=== PATIENT | female | born 1990 | race Caucasian/White ===

== ENCOUNTER 2016-07-24 10:19 | Emergency (ER) | payer OTHER ==
[~2016-07-24 10:19] MED LIST: IBUPROFEN600 MG PO
[2016-07-24 11:16] LABS: HEMOGLOBIN 14.5 gm/dl (12.3-15.3); RED BLOOD COUNT 4.81 M/UL (4.00-5.10); WHITE BLOOD COUNT 8.4 K/UL (4.5-11.0)
[2016-07-24 11:39] LABS: BUN/CREATININE RATIO 14 (0-10)
== END 2016-07-24 12:45 | disposition home or self-care (01) ==
LOC: ER1 10:19
PROVIDERS: Emergency Medicine
DX: H66.92 Otitis media, unspecified, left ear (principal); R11.10 Vomiting, unspecified; R05 Cough; R19.7 Diarrhea, unspecified; M79.1 Myalgia
CPT/HCPCS: 36415; 80053; 81001; 84703; 85025; 87040; 87081; 87880; 96361; 96374; 99283; J2405; J7030

== ENCOUNTER 2016-07-26 13:36 | Emergency (ER) | payer OTHER ==
[2016-07-26 15:43] LABS: HEMOGLOBIN 13.3 gm/dl (12.3-15.3); RED BLOOD COUNT 4.43 M/UL (4.00-5.10); WHITE BLOOD COUNT 8.2 K/UL (4.5-11.0)
[2016-07-26 16:00] LABS: BUN/CREATININE RATIO 18 (0-10)
== END 2016-07-26 17:22 | disposition home or self-care (01) ==
LOC: ER1 13:36
PROVIDERS: Physician Assistant
DX: R11.2 Nausea with vomiting, unspecified (principal); R19.7 Diarrhea, unspecified; R50.9 Fever, unspecified; R10.9 Unspecified abdominal pain
CPT/HCPCS: 36415; 80053; 82150; 83690; 85025; 96374; 99284; J2405; J7030

== ENCOUNTER 2020-08-25 20:39 | Emergency (ER) | payer OTHER ==
[~2020-08-25 20:39] MED LIST changes: +AUGMENTIN 875-1 EACH PO; +CARAFATE1 GM PO; +CLARITIN10 MG PO; +FLONASE ALLER15.8 ML; +MACROBID 100 M100 MG PO; +MUCINEX DM ER1 EAC1 PO; +PROTONIX40 MG PO; +VENTOLIN HFA 66.7 GM INH; +ZOFRAN4 MG PO
[2020-08-26 00:58] LABS: HEMOGLOBIN 15.4 gm/dl (12.3-15.3); RED BLOOD COUNT 4.9 M/UL (4.00-5.10)
[2020-08-26 01:32] LABS: BUN/CREATININE RATIO 26 (0-10)
[2020-08-26] MEDS ORDERED: CEPHALEXIN500 MG PO (03:18)
[2020-08-26] MEDS ORDERED: ZOFRAN ODT 4 MG4 MG PO (03:18)
[2020-08-26] MEDS ORDERED: LODINE CAP 300300 MG PO (04:03)
== END 2020-08-26 04:28 | disposition home or self-care (01) ==
LOC: ER1 20:39
PROVIDERS: Physician Assistant
DX: N12 Tubulo-interstitial nephritis, not specified as acute or chronic (principal); R07.9 Chest pain, unspecified; F17.210 Nicotine dependence, cigarettes, uncomplicated
CPT/HCPCS: 36600; 71045; 80053; 81001; 82550; 82553; 82803; 83605; 83690; 84484; 84703; 85025; 87086; 93005; 99285; J0696; J1885; J2405; J7030; Q9967

== ENCOUNTER 2021-06-29 04:38 | Emergency (ER) | payer OTHER ==
[~2021-06-29 04:38] MED LIST changes: +CEPHALEXIN500 MG PO; +LODINE CAP 300300 MG PO; +ZOFRAN ODT 4 MG4 MG PO
[2021-06-29] MEDS ORDERED: HURRICAINE ONE1 EACH MT (06:12)
== END 2021-06-29 06:26 | disposition home or self-care (01) ==
LOC: ER1 04:38
DX: R07.0 Pain in throat (principal); F17.210 Nicotine dependence, cigarettes, uncomplicated
CPT/HCPCS: 86403; 87081; 87880; 96372; 99283; J0561

== ENCOUNTER 2021-08-16 18:20 | Inpatient (IN) | payer OTHER ==
[~2021-08-16] VITALS: Ht 175.3 cm; Wt 204.1 kg
[~2021-08-16 18:20] MED LIST changes: +HURRICAINE ONE1 EACH MT; -IBUPROFEN600 MG PO
[2021-08-16 19:21] LABS: HEMOGLOBIN 12.9 gm/dl (12.3-15.3); RED BLOOD COUNT 4.15 M/UL (4.00-5.10); WHITE BLOOD COUNT 15.1 K/UL (4.5-11.0)
[2021-08-16 20:13] LABS: BUN/CREATININE RATIO 16 (0-10)
[2021-08-16] MEDS ORDERED: LEVOTHYROXINE25 MCG PO (23:56)
[2021-08-17] MEDS ORDERED: TYLENOL EXTRA500 MG PO (08:05)
[2021-08-17] MEDS ORDERED: IBUPROFEN800 MG PO (14:02)
[2021-08-17] MEDS ORDERED: HYDROCHLOROTHIA25 MG PO (23:56)
[2021-08-18 02:50] LABS: HEMOGLOBIN 11.8 gm/dl (12.3-15.3); RED BLOOD COUNT 3.82 M/UL (4.00-5.10); WHITE BLOOD COUNT 14.6 K/UL (4.5-11.0)
[2021-08-18 03:40] LABS: BUN/CREATININE RATIO 26 (0-10)
[2021-08-19 06:45] LABS: HEMOGLOBIN 11.6 gm/dl (12.3-15.3); RED BLOOD COUNT 3.77 M/UL (4.00-5.10); WHITE BLOOD COUNT 9.4 K/UL (4.5-11.0)
[2021-08-19] MEDS ORDERED: LEVOFLOXACIN500 MG PO (11:01)
[2021-08-19] MEDS ORDERED: LEVOTHYROXINE50 MCG PO (11:01)
[2021-08-19] MEDS ORDERED: NICOTINE PATCH1 EAC2 TOP (11:04)
== END 2021-08-19 12:56 | disposition home or self-care (01) | DRG 871 ==
LOC: ER1 18:20 → CDU 22:42 → MED SURG 4 22:42
PROVIDERS: Emergency Medicine; Internal Medicine Infectious Disease; ADMIT Internal Medicine
DX: A41.9 Sepsis, unspecified organism (principal); J18.9 Pneumonia, unspecified organism; J96.21 Acute and chronic respiratory failure with hypoxia; E66.2 Morbid (severe) obesity with alveolar hypoventilation; Z68.44 Body mass index [BMI] 60.0-69.9, adult; Z20.822 Contact with and (suspected) exposure to COVID-19; F17.210 Nicotine dependence, cigarettes, uncomplicated; E03.9 Hypothyroidism, unspecified; E87.6 Hypokalemia; I10 Essential (primary) hypertension; Z99.81 Dependence on supplemental oxygen
CPT/HCPCS: 0240U; 36415; 36600; 71045; 80048; 80053; 81001; 82550; 82553; 82803; 83735; 83880; 84100; 84132; 84443; 84484; 84703; 85025; 85379; 85610; 85730; 87070; 87086; 87205; 93005; 94640; 94664; 94760; 96374; 96375; 99283; J0456; J0696; J1650; J2930; J7030